=== PATIENT | female | born 1975 | race Caucasian/White ===

== ENCOUNTER 2019-03-12 10:53 | Outpatient (REF) | payer BC, SELFPAY | END 2019-03-12 11:13 | LOC: LBN 10:53 | PROVIDERS: PCP Emergency Medicine | DX: J02.9 Acute pharyngitis, unspecified (principal) | CPT/HCPCS: 87077; 87070 ==

== ENCOUNTER 2019-11-01 08:23 | Outpatient (CLI) | payer BC, SELFPAY ==
[2019-11-01 11:23] LABS: Calculated LDL 100 mg/dL; Cholesterol 161 mg/dL (<200); HDL Cholesterol 47 mg/dL (40-60); Triglyceride 74 mg/dL (<150)
[2019-11-02 10:39] LABS: Lyme Ab w Rflx to Lyme Confirm Negative (Negative)
== END 2019-11-01 08:43 ==
PROVIDERS: PCP Emergency Medicine; Visit Provider Nurse Practitioner
DX: Z13.220 Encounter for screening for lipoid disorders (principal); Z13.1 Encounter for screening for diabetes mellitus; Z11.8 Encounter for screening for other infectious and parasitic diseases; W57.XXXA Bitten or stung by nonvenomous insect and other nonvenomous arthropods, initial encounter; T14.8XXA Other injury of unspecified body region, initial encounter
CPT/HCPCS: 36415; 80061; 83036; 86618

== ENCOUNTER 2020-10-01 11:23 | Outpatient (CLI) | payer BC, SELFPAY ==
[2020-10-04 14:43] LABS: Patient Race White; SARS-CoV-2 RNA Undetected (Undetected); SARS-CoV-2 Specimen Source Nasal
== END 2020-10-01 11:43 ==
PROVIDERS: PCP Emergency Medicine; Visit Provider Emergency Medicine
DX: J02.9 Acute pharyngitis, unspecified (principal)
CPT/HCPCS: U0003

== ENCOUNTER 2021-12-15 15:49 | Emergency (ER) | payer BC, SELFPAY ==
[2021-12-15] VITALS (13 sets, daily range): BP systolic 112–137; BP diastolic 63–80; PULSE 60–82; RESP 12–21; TEMP 36.6; O2SAT 81–100
--- NOTE | 2021-12-15 15:45 | RT.EKG_ITS ---
APPROVED REPORT Exam: Resting ECG Reason for Exam: CHEST PAIN Patient Location: E HR:66 bpm ECG Measurements Heart Rate 66 AXIS AZ 157 P 71 QRSd 70 QRS 47 QT 376 T 41 QTc 395 Conclusion Sinus rhythm...normal P axis, V-rate 60- 99
--- NOTE | 2021-12-15 16:00 | DI.CT_ITS ---
Exam(s) CT CHEST PE CTA EXAM: CT CHEST PE CTA CLINICAL HISTORY: Chest Pain, Post Covid, R/O PE. TECHNIQUE: Imaging Protocol: CT angiography of the chest was performed using pulmonary embolus rolando col. Multi planar reconstructions were performed. CONTRAST MATERIAL: Intravenous: Omnipaque 350 Contrast volume: 100 cc COMPARISON: No exams were available for comparison FINDINGS: CHEST: PULMONARY ARTERIES: There are no intraluminal filling defects to suggest acute pulmonary emboli. LUNGS: There are no infiltrates nor evidence of pulmonary infarction.. There are no pleural effusions . MEDIASTINUM: There is no hilar nor mediastinal adenopathy. Visualized thyroid unremarkable. CARDIAC: Heart size is upper normal. There is no pericardial effusion.Caliber of the thoracic aorta is within normal limits. There is no significant shift of the interventricular septum. PARTIALLY VISUALIZED UPPERMOST ABDOMEN: No obvious findings OSSEOUS: No significant osseous lesions.. IMPRESSION: 1. No evidence of acute pulmonary emboli. No evidence of pulmonary infarction.No infiltrates in eith er lung field. No pleural effusions. 2. No intrathoracic adenopathy. 3. RADIATION DOSE DELIVERED: 434.49mGy.cm Total DLP DATA REPOSITORY: All CT scans at this facility are submitted to the National Radiology Data Registry (NRDR) Dose Index Registry (DIR) with the [employer] (ACR). RADIATION OPTIMIZATION: All CT scans at this facility use at least one of these dose optimization te chniques: automated exposure control; mA and/or kV adjustment per patient size (includes targeted exa ms where dose is matched to clinical indication); or iterative reconstruction.
[2021-12-15 16:18] LABS: Abs Immature Grans 0.01 10^3/uL (0.0-0.06); Absolute Basophil Count 0.06 10^3/uL (0.0-0.2); Absolute Eosinophil Count 0.15 10^3/uL (0.0-0.7); Absolute Lymphocyte Count 2.09 10^3/uL (1.2-3.4); Absolute Monocyte Count 0.61 10^3/uL (0.1-0.8); Absolute Neutrophil Count 4.37 10^3/uL (1.2-6.7); Basophils % 0.8; Eosinophils % 2.1; HCT 41.9 % (36.0-46.0); HGB 14.1 g/dL (11.2-15.7); Immature Grans % 0.1; Lymphocytes % 28.7; MCH 30.1 pg (27.0-33.0); MCHC 33.7 % (32.0-36.0); MCV 89.5 fL (80-95); MPV 10.8 fL (8.0-11.0); Monocytes % 8.4; Neutrophils % 59.9; Nucleated RBC 0 %; Platelet Count 201 10^3/uL (130-400); RBC 4.68 10^6/uL (3.93-5.22); RDW 12.2 % (11.7-14.6); WBC 7.29 10^3/uL (4.4-10.8)
--- NOTE | 2021-12-15 16:22 | W.ED.GENAD ---
Discharge Plan Disposition Patient Disposition: HOME Condition: Stable Discharge Details Clinical Impression: Anterior chest wall pain Primary Care Provider: Sterling Foster ED Provider: Rubina Shukla Home Meds and New Rx's Prescriptions: No Action hydroquinone 4 % cream 1 applic TOPICAL BID RF: 0 sertraline [Zoloft] 50 mg tablet 50 mg PO DAILY RF: 0 spironolactone [Aldactone] 50 mg tablet 50 mg PO BID RF: 0 Discharge Instructions Instructions: Chest Wall Pain (ED) Additional Instructions: At this time CT shows no evidence for blood clot in your lung nor is there any evidence for cardiac involvement. At this time I do feel that the musculoskeletal. This could be residual from the recent Covid infection. Please take Tylenol or Ibuprofen with food every 4-6 hours as needed for pain and swelling. Follow up with primary care provider in 3-5 days. Return to ED sooner if any worsening or concerns. Increase oral fluids. Referrals: Sterling Foster MD [Primary Care Provider] - 3 days Discharge Data Discharge Date/Time-TO BE ENTERED AT DEPARTURE: 12/15/21 17:55 Medical Decision Making 45-year-old female presents to the ER with chief complaint of midsternal chest pain, fatigue is been ongoing for the last 2 days. Patient reports that she had 2+ home Covid test however had a negative PCR test the end of November. She reports chest fullness. She was sent here by her PCP to rule out blood clot. She denies any recent long trips in a car plane, no leg swelling. She denies smoker. EKG was reviewed by Dr. Rincon ER attending, please see his official report, no old EKG available for review. CBC, CMP, CT chest rule out PE ordered. Serial troponins. CBC shows no leukocytosis, CMP also largely within normal limits, initial troponin within normal limits, CT chest results below. CTA Chest R/O PE: COMPARISON: No relevant prior studies available. FINDINGS: Pulmonary arteries: Contrast fills the pulmonary artery and its branch vessels satisfactorily. No intraluminal filling defect to suggest pulmonary embolism. Aorta: Unremarkable. No aortic aneurysm. No aortic dissection. Lungs: Unremarkable. No consolidation. No masses. Pleural spaces: Unremarkable. No pneumothorax. No pleural effusion. Heart: Unremarkable. No cardiomegaly. No pericardial effusion. Lymph nodes: Unremarkable. No enlarged lymph nodes. Bones/joints: Unremarkable. No acute fracture. Soft tissues: Unremarkable. IMPRESSION: 1. No pulmonary embolism. 2. No acute pulmonary parenchymal finding. Thank you for allowing us to participate in the care of your patient. Dictated and Authenticated by: Vinny Stephenson MD Discussed results with patient verbally understanding. Patient was given Maalox prior to discharge. Charge on home care, verbalized understanding. This text was generated using [employer] dictation system, please disregard any oddities of phrase or misspellings. HPI General Mode of arrival: ambulatory. Date/Time Provider Initiated Documentation: 12/15/21 15:50. Limitations to Documentation: no limitations. Information obtained by: patient, RN notes reviewed and old records reviewed. HPI Narrative: 45-year-old female presents to the ER with chief complaint of midsternal chest pain, fatigue is been ongoing for the last 2 days. Patient reports that she had 2+ home Covid test however had a negative PCR test the end of November. She reports chest fullness. She was sent here by her PCP to rule out blood clot. She denies any recent long trips in a car plane, no leg swelling. She denies smoker. Related Data Home Medications Medication Instructions Recorded Confirmed hydroquinone 1 applic TOPICAL BID 12/15/21 12/15/21 sertraline [Zoloft] 50 mg PO DAILY 12/15/21 12/15/21 spironolactone [Aldactone] 50 mg PO BID 12/15/21 12/15/21 Allergies Allergy/AdvReac Type Severity Reaction Status Date / Time tramadol Allergy Intermediate HIVES Verified 12/15/21 16:16 codeine Allergy Mild HIVES; GI Verified 12/15/21 16:16 UPSET milk AdvReac Unknown lactose Verified 12/15/21 16:16 intolerant General Stated Complaint: Chest Pain GENET: 3 Review of Systems All systems reviewed & are unremarkable except as noted in HPI and below PFSH All Active Problems (Updated 12/15/21 @ 17:58 by Samantha Conte RN) COVID-19 (Acute) December 2021 Anterior chest wall pain (Acute) Trigger finger (Acute) Immunity to hepatitis B virus demonstrated by serologic test (Acute) Post-nasal drainage (Acute) Snoring (Acute) Seasonal allergic rhinitis (Chronic) History of stillbirth (Acute 02/21/17) Grief with PTSD like symptoms H/O lumbar discectomy (Chronic 12/28/16) 2007 Dr Schumacher. 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 Appears stated age. Normal body habitus. Head: Normocephalic, no trauma. Eyes: Pupils PERRL, Red reflex noted, EOM's intact. Eyelids symmetrical without lesions, discharge, or swelling. ENT: Bilateral TM's WNL, External ear normal to inspection, no mastoid TTP, swelling, or erythema, Nasal turbinates WNL, no nasal discharge. Normal dentition, Posterior pharynx WNL, no exudate. Chest: RRR, Normal S1, S2, distal pulses intact. Resp: Lungs clear to auscultation bilaterally, no wheezes, rales, or rhonchi. Abdomen: Soft, non-distended, Normoactive bowel sounds all 4 quads. Musculoskeletal: Normal gait, 5/5 strength to all four extremities. Skin: No suspicious rashes or lesions. Capillary refill less than 2 sec. Neurologic: Cranial nerves II-XII intact. Alert and oriented x 3. Motor: No deficits noted. Sensory: Intact bilaterally all 4 extremities. Reflexes: DTR's intact bilaterally.. Hematologic/Lymphatic: No ecchymosis, no lymphadenopathy. Course Vital Signs Vital signs: Vital Signs Temperature 36.6 C 12/15/21 15:53 Pulse 72 12/15/21 15:53 Respiratory Rate 16 12/15/21 15:53 Blood Pressure 134/78 12/15/21 15:53 Pulse Oximetry 98 12/15/21 15:53 Temperature 36.6 C 12/15/21 15:53 Temperature Source Temporal Artery Scan 12/15/21 15:53 Pulse 72 12/15/21 15:53 Respiratory Rate 16 12/15/21 15:53 Blood Pressure 134/78 12/15/21 15:53 Blood Pressure Position Sitting 12/15/21 15:53 Pulse Oximetry 98 12/15/21 15:53 Oxygen Delivery Method Room Air 12/15/21 15:53 Oxygen Flow Rate 0 12/15/21 15:53 Lab/Test Results Lab/Test Results: Laboratory Tests Range/Units 12/15/21 16:10 WBC (4.4-10.8) 10^3/uL 7.29 RBC (3.93-5.22) 10^6/uL 4.68 Hgb (11.2-15.7) g/dL 14.1 Hct (36.0-46.0) % 41.9 MCV (80-95) fL 89.5 MCH (27.0-33.0) pg 30.1 MCHC (32.0-36.0) % 33.7 RDW (11.7-14.6) % 12.2 Plt Count (130-400) 10^3/uL 201 MPV (8.0-11.0) fL 10.8 Immature Gran % 0.1 Neutrophils % 59.9 Lymphocytes % 28.7 Monocytes % 8.4 Eosinophils % 2.1 Basophils % 0.8 Nucleated RBC % % 0 Absolute Neutrophils (1.2-6.7) 10^3/uL 4.37 Absolute Lymphocytes (1.2-3.4) 10^3/uL 2.09 Absolute Monocytes (0.1-0.8) 10^3/uL 0.61 Absolute Eosinophils (0.0-0.7) 10^3/uL 0.15 Absolute Basophils (0.0-0.2) 10^3/uL 0.06 POC- Test(urine) Negative
[2021-12-15 16:36] LABS: ALT 17 U/L (14-59); AST 5 U/L (15-37); Albumin 4.1 g/dL (3.4-5.0); Alkaline Phosphatase 50 U/L (46-116); Anion Gap 8.7 mmol/L (3-11); BUN 18 mg/dL (7-18); Bilirubin, Total 0.3 mg/dL (0.2-1.0); CO2 26.3 mmol/L (21.0-32.0); CREATININE 0.7 mg/dL (0.55-1.02); Calcium 8.9 mg/dL (8.5-10.1); Chloride 104 mmol/L (98-107); Glucose 94 mg/dL (74-106); Sodium 139 mmol/L (136-145); Total Protein 7.6 g/dL (6.4-8.2); Troponin I < 50 ng/L (<or=60)
[2021-12-15] MEDS: Omnipaque 350 MG/ML 100 ML BTL IV (17:23)
--- NOTE | 2021-12-15 17:27 | DI.VRAD_ITS ---
PROCEDURE INFORMATION: Exam: CTA Chest With Contrast Exam date and time: 12/15/2021 4:06 PM Age: 45 years old Clinical indication: Other: Chest pain, post covid, R/O pe TECHNIQUE: Imaging protocol: Computed tomographic angiography of the chest with contrast. 3D rendering (Not supervised by radiologist): MIP and/or 3D reconstructed images were created by the technologist. Radiation optimization: All CT scans at this facility use at least one of these dose optimization techniques: automated exposure control; mA and/or kV adjustment per patient size (includes targeted exams where dose is matched to clinical indication); or iterative reconstruction. COMPARISON: No relevant prior studies available. FINDINGS: Pulmonary arteries: Contrast fills the pulmonary artery and its branch vessels satisfactorily. No intraluminal filling defect to suggest pulmonary embolism. Aorta: Unremarkable. No aortic aneurysm. No aortic dissection. Lungs: Unremarkable. No consolidation. No masses. Pleural spaces: Unremarkable. No pneumothorax. No pleural effusion. Heart: Unremarkable. No cardiomegaly. No pericardial effusion. Lymph nodes: Unremarkable. No enlarged lymph nodes. Bones/joints: Unremarkable. No acute fracture. Soft tissues: Unremarkable. IMPRESSION: 1. No pulmonary embolism. 2. No acute pulmonary parenchymal finding. Dictated and Authenticated by: Vinny Stephenson MD. Ordering:WILLIAM Cespedes MD
[2021-12-15] MEDS: Mylanta Suspension 30 ML CUP PO (17:47)
== END 2021-12-15 17:55 | disposition home or self-care (01) ==
PROVIDERS: Emergency Provider Registered Nurse Emergency; PCP Family Medicine
DX: R07.89 Other chest pain (principal); R53.1 Weakness; Z86.16 Personal history of COVID-19
CPT/HCPCS: 36415; 71275; 80053; 81025; 93005; 99285; 83735; 84484; 85025; 93010; 99283; J3490

== ENCOUNTER 2022-09-13 18:27 | Outpatient (REF) | payer BC, SELFPAY | END 2022-09-13 18:28 | disposition home or self-care (01) | LOC: LBN 18:27 | PROVIDERS: PCP Nurse Practitioner Family; Visit Provider Nurse Practitioner Family | DX: Z20.822 Contact with and (suspected) exposure to COVID-19 (principal); J02.9 Acute pharyngitis, unspecified | CPT/HCPCS: 87070 ==

== ENCOUNTER 2023-07-25 13:36 | Outpatient (CLI) | payer BC, SELFPAY ==
--- NOTE | 2023-07-25 13:15 | DI.RAD_ITS ---
Exam(s) XR SHOULDER LT COMPLETE 2+V EXAM: XR SHOULDER LT COMPLETE 2+V CLINICAL HISTORY: L shoulder injury. TECHNIQUE: 2D digital imaging was performed of the left shoulder. Three images were obtained. AP, Y-view and axillary views were obtained. COMPARISON: CT CT CHEST PE CTA from 12/15/2021 FINDINGS: BONES: No acute fracture is present. No bony destructive lesion is seen. JOINTS: No dislocation present. The joint spaces are well maintained. SOFT TISSUE: Normal. IMPRESSION: Unremarkable radiographs of the left shoulder. DATA REPOSITORY: RADIATION DOSE DELIVERED:
--- NOTE | 2023-07-25 13:15 | DI.RAD_ITS ---
Exam(s) XR THUMB RT EXAM: XR THUMB RT CLINICAL HISTORY: R thumb injury. TECHNIQUE: 2D digital imaging was performed of the right finger. Three views were obtained. PA/AP, oblique, and lateral views were obtained. COMPARISON: CR RIGHT WRIST COMPLETE from 12/10/2011 FINDINGS: BONES: No acute fracture is present. No bony destructive lesion is seen. JOINTS: No dislocation present. SOFT TISSUE: Normal. IMPRESSION: No evidence of acute fracture, dislocation, or subluxation. DATA REPOSITORY: RADIATION DOSE DELIVERED:
== END 2023-07-25 13:37 | disposition home or self-care (01) ==
LOC: DIORS 13:36
PROVIDERS: PCP Nurse Practitioner Family; Visit Provider Physician Assistant
DX: S69.91XA Unspecified injury of right wrist, hand and finger(s), initial encounter; S49.90XA Unspecified injury of shoulder and upper arm, unspecified arm, initial encounter; X58.XXXA Exposure to other specified factors, initial encounter
CPT/HCPCS: 73030; 73140

== ENCOUNTER 2023-08-29 06:56 | Day surgery (SDC) | payer BC, SELFPAY ==
--- NOTE | 2023-08-28 19:21 | W.PM.DSUDISC ---
Date of service: 08/29/23 Time of Service: 08:45 Discharge Plan Disposition Patient Disposition: Home Condition: Good Discharge Details Reason For Visit: Screening colonoscopy Attending Provider: John Ravi Primary Care Provider: Prosper Sepulveda Home Meds and New Rx's Prescriptions: Continued vitamin B complex [B Complex-Vitamin B12] Tablet 1 tab PO DAILY cholecalciferol (vitamin D3) 25 mcg (1,000 unit) capsule 25 mcg PO DAILY Women's Daily Formula 27-0.4 mg tablet 1 tab PO DAILY Galzin 50 mg (zinc) capsule 50 mg PO DAILY ascorbic acid (vitamin C) 500 mg capsule 500 mg PO DAILY Adult 50 Plus Probiotic 4 billion cell capsule 4,000 cell PO DAILY spironolactone 100 mg tablet 100 mg PO DAILY omeprazole 20 mg capsule,delayed release(DR/EC) 20 mg PO BID Qty: 90 3RF hydroquinone 4 % cream 1 applic TOPICAL BID Patient Comments: APPLY TO FACE TWO TIMES A DAY sertraline [Zoloft] 50 mg tablet 50 mg PO DAILY Patient Comments: TAKE ONE TABLET BY MOUTH EVERY DAY Discontinued polyethylene glycol 3350 17 gram/dose powder 238 g PO ONCE Qty: 238 0RF Rx Instructions: take per colonoscopy instructions bisacodyl [Dulcolax (bisacodyl)] 5 mg tablet,delayed release (DR/EC) 5 mg PO ONCE Qty: 4 0RF Rx Instructions: take per colonoscopy instructions Discharge Instructions Additional Instructions: Fall on, we were able to complete your colonoscopy today without any problems. The prep was excellent. I did not see any signs of polyps, tumors, or anything worrisome. You should consider another colonoscopy in 10 years. 1. If tolerated, consume a soft, low fiber diet for 1-2 days. 2[address] Do not drive, drink alcohol, operate machinery, make critical decisions, or do activities that require coordination or balance for 24 hours. 3. Because air was put into your colon during the procedure, expelling air from your rectum (passing gas or farting) is normal. 4. You may not have a bowel movement for 1-3 days because of the colonoscopy prep. This is normal. 5. Go directly to the emergency room if you notice any of the following: Develop chills (warm to touch), or if you have a thermometer and your temperature is above 101 Difficulty breathing or difficultly swallowing Persistent vomiting Severe abdominal pain, other than gas cramps Severe chest pain Black, tarry stools Any bleeding ? exceeding one tablespoon 6. Call your physician if the site where your intravenous was started becomes red, swollen, painful, and warm to touch. 7. Your physician has reviewed your pre-procedure medications. Please continue to take those medications as previously ordered. You will be given specific information/education regarding any changes to your medications before leaving. Activity:: Activity as Tolerated Diet:: As Tolerated Discharge Orders Discharge Orders: Discharge Order (Routine); Ordered 08/28/23 Ordered By: John Ravi DS: Diagnosis Discharge Diagnosis (1) Screen for colon cancer: Status: Acute Asessment and Plan: Negative screening colonoscopy
--- NOTE | 2023-08-28 19:23 | COLE_ITS ---
Date of service: 08/29/23 Time of Service: 08:46 Colonoscopy Report Date of procedure: 08/29/23 Pre-op diagnosis general: Screening colonoscopy Post-op diagnosis procedure note: other (Negative screening colonoscopy) Procedure: Colonoscopy Surgeon: John Ravi Anesthesia Type: General:No Airway Estimated blood loss (mL): 0 Pathology: none sent Complications: None Disposition: same day Indications: Florence is a 47 year old woman who needs her first screening colonoscopy Prep: Miralax/Dulcolax Procedure Start Time: 08:20 Procedure End Time: 08:31 Retraction Time: 7 Findings: Negative screening colonoscopy Procedure Description: After the induction of monitored anesthetic care, and with the patient in left lateral decubitus position, I began by performing an external anorectal exam.? Perineum and skin were normal, as was the anal verge.? There was no evidence of external hemorrhoids.? Next, I performed a digital rectal exam.? I did not appreciate any abnormal findings.? Next, I advanced a colonoscope into the rectal vault.? I performed retroflexion.? This was normal.? Using insufflation, I then advanced the colonoscope beyond the rectal folds and into the sigmoid colon before advancing towards the cecum.? The scope was noted to be in the cecum by identification of the ileocecal valve and appendiceal orifice.? I then began withdrawing the colonoscope using repeated irrigation as necessary for full evaluation of the colonic mucosa. ?Once the scope was withdrawn to the level of the rectum, great care was taken to examine portions of the rectal folds.? Using the [place] prep score, the quality of the prep was 3, 3, 3 from right to left. finally, the scope was withdrawn and the patient was brought to the same-day surgery recovery unit as the anesthetic wore off. ?The findings and instructions were shared with the patient prior to discharge.
[2023-08-29 07:24] VITALS: BP 115/81; PULSE 96; RESP 18; TEMP 36; O2SAT 97
[2023-08-29] MEDS: Lactated Ringers 1,000 ML 80 ML IV (07:40)
--- NOTE | 2023-08-29 07:40 | ANES.PREOP_ITS ---
General Info Date of Service Date Performed: 08/29/23 Height: 5 ft 8.5 in Weight: 75.1 kg Body Mass Index (BMI): 24.7 Surgical Procedure: Operation Date: 08/29/23 09:05 Proposed Procedure Side Surgeon p Colonoscopy, possible polypectomy John Ravi MD Meds Allergies and Home Medications Allergies Allergy/AdvReac Type Severity Reaction Status Date / Time lactose Allergy Intermediate diarrhea/bl Verified 08/29/23 07:17 oating tramadol Allergy Intermediate HIVES Verified 08/29/23 07:17 codeine Allergy Mild HIVES; GI Verified 08/29/23 07:17 UPSET Home Medication Medication Instructions Recorded hydroquinone 4 % topical cream 1 applic topical BID 12/15/21 sertraline 50 mg tablet (Zoloft) 50 mg PO DAILY 12/15/21 ascorbic acid (vitamin C) 500 mg 500 mg PO DAILY 10/14/22 capsule cholecalciferol (vitamin D3) 25 25 mcg PO DAILY 10/14/22 mcg (1,000 unit) capsule lactobacillus combination no.9 4 4,000 cell PO DAILY 10/14/22 billion cell capsule (Adult 50 Plus Probiotic) [id number]-minerals 27 1 tab PO DAILY 10/14/22 mg-0.4 mg tablet (Women's Daily Formula) vitamin B complex (B 1 tab PO DAILY 10/14/22 Complex-Vitamin B12 tablet) zinc acetate 50 mg (zinc) capsule 50 mg PO DAILY 10/14/22 (Galzin) omeprazole 20 mg capsule,delayed 20 mg PO BID #90 caps 08/15/23 release spironolactone 100 mg tablet 100 mg PO DAILY 08/15/23 Current Visit Medications: Current Medications Generic Name Dose Route Start Last Admin Trade Name Freq PRN Reason Stop Dose Admin Hyoscyamine Sulfate 0.125 mg 08/29/23 06:00 Hyoscyamine 0.125 Mg Sl/Oral/Chew SL 08/29/23 18:00 PREOP NILSA Hyoscyamine Sulfate 0.125 mg 08/28/23 19:24 Hyoscyamine 0.125 Mg Sl/Oral/Chew SL 09/27/23 19:23 DIRECTED PRN Ringer's Solution 1,000 mls @ 80 mls/hr 08/29/23 06:00 IV 09/25/23 23:59 INFUSION NILSA IV Miscellaneous Supplies 1 each 08/29/23 06:00 Iv Access IV 09/25/23 23:59 DIRECTED [facility] Ondansetron HCl 4 mg 08/28/23 19:24 Ondansetron 4 Mg/2 Ml Vial IVP 09/27/23 19:23 Q4H PRN PRN Nausea / Vomiting Sodium Chloride 0 ml 08/29/23 06:00 Normal Saline Flush 10 Ml Syr IV 09/25/23 23:59 PRN PRN Sodium Chloride 0 ml 08/29/23 06:00 Normal Saline 10 Ml Vial IJ 09/25/23 23:59 DIRECTED PRN Sterile Water 0 ml 08/29/23 06:00 Water,Injection,Sterile 10 Ml Vial IJ 09/25/23 23:59 DIRECTED PRN PFSH Active Problems Active Problems: Problem Status Onset Code Screen for colon cancer Z12.11 Chronic GERD K21.9 Injury of volar plate of interphalangeal joint of thumb S69.90XA Tendinitis of long head of biceps brachii of left shoulder M75.22 Low back pain M54.50 Heart burn R12 Non-restorative sleep G47.8 Snoring R06.83 Obstructive sleep apnea G47.33 COVID-19 U07.1 Trigger finger M65.30 Seasonal allergic rhinitis J30.2 History of stillbirth 12/28/16 Z87.59 Chronic left-sided low back pain with left-sided sciatica 12/28/16 M54.42, G89.29 Medical History Medical History (Updated 08/29/23 @ 07:20 by Angely Newton) Uterine fibroid Surgical History Surgical History (Updated 08/29/23 @ 07:20 by Angely Newton) [place] teeth extracted History of back surgery 2007, lumbar-discectomy Tobacco Smoking/Tobacco Use Status: Never Passive smoking exposure: Yes Second hand exposure: Yes Alcohol Alcohol Intake: current Alcohol intake frequency: a few times a week Alcohol type: wine and hard liquor Substance Use Substance use: Never Substance use type: does not use Details: alcohol: t-6, one glass Vital Signs and Lab Results Vital Signs Most Recent Vital Signs in EMR: Most Recent Vital Signs Temp Pulse Resp BP Pulse Ox 36.0 C L 96 H 18 115/81 97 08/29/23 07:24 08/29/23 07:24 08/29/23 07:24 08/29/23 07:24 08/29/23 07:24 Lab Results Blood Type / Crossmatch: No Data to Display Complete Blood Count: No Data to Display Complete Metabolic Panel: No Data to Display Liver Function Panel: No Data to Display Coagulation Panel: No Data to Display Cardiac Panel: No Data to Display Arterial Blood Gas: No Data to Display Venous Blood Gas: No Data to Display Pancreas Panel: No Data to Display Thyroid Panel: No Data to Display Infectious Disease: No Data to Display Blood Cultures: No Data to Display Toxicology Panel: No Data to Display Panel: No Data to Display Imaging and Studies Imaging and Studies Study information below may be from another EMR and interpreted by another provider. Please see original notes in EMR for more complete details. EKG Summary: Conclusion Sinus rhythm...normal P axis, V-rate 60- 99 12/15/21 Echocardiogram Summary: STUDY CONCLUSIONS* Summary: 1. Left ventricle: The cavity size was normal. Wall thickness was normal. Systolic function was normal. The estimated ejection fraction was 60-65%. Wall motion was normal; there were no regional wall motion abnormalities. 2. 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 Mild, late systolicprolapse, involving the anterior leaflet. Mild regurgitation directed posteriorly. 3. Left atrium: The atrium was mildly dilated. 4. Right ventricle: The cavity size was normal. Wall thickness was normal. Systolic function was normal. 12/05/15 Anesthesia Assessment and Plan Anesthesia History Personal History: No History of Anesthesia Complications Family History: No Family History of Anesthesia Complications Exercise Tolerance Exercise Tolerance: Metabolic Equivalents>4 Pertinent Negatives Pertinent Negatives: No Symptoms of GERD, No Major Cardiovascular Symptoms or Complaints and No Major Pulmonary Symptoms or Complaints Cardiac & Pulmonary Exam Cardiac Exam: Normal S1/S2 Heart Sounds Pulmonary Exam: Clear Bilateral Breath Sounds Implantable Cardiac Device Does patient have a Pacemaker or an ICD?: No Airway Exam Known Difficult Airway: No Mallampati Class: 1 Mouth Opening: Normal (> 3cm) Thyromental Distance: Greater than 3 cm Neck Range of Motion: Full ROM Neck Circumference: Normal Teeth Condition: Normal Dentition ASA Classification ASA Score: ASA 2 Emergency Case?: No NPO Status NPO Status: NPO Clears >2 hours, Solids >8 hours Status Status: Negative HCG Anesthesia Plan Resuscitation Status: Full Code Anesthesia Technique: General Anesthesia Airway Planned: Natural Airway Monitors Used: Standard Monitors
[2023-08-29] MEDS: Hyoscyamine 0.125 MG SL/ORAL/CHEW SL (07:55)
[2023-08-29 08:13] VITALS: BMI 24.7
[2023-08-29 08:38] VITALS: BP 102/75; PULSE 74; RESP 16; TEMP 36.2; O2SAT 98
[2023-08-29 09:00] VITALS: BP 120/88; PULSE 70; RESP 18; TEMP 36.6; O2SAT 99
[2023-08-29 09:04] VITALS: BP 111/73; PULSE 63; RESP 18; TEMP 36.4; O2SAT 98
--- NOTE | 2023-08-29 09:04 | W.ANESPOSTOP ---
Postoperative Evaluation Date, Time and Location Date Performed: 08/29/23 Time Performed: 08:48 Patient Location: Day Surgery Unit Vital Signs Most Recent Imported Vital Signs: Most Recent Vital Signs Temp Pulse Resp BP Pulse Ox 36.2 C L 74 16 102/75 98 08/29/23 08:38 08/29/23 08:38 08/29/23 08:38 08/29/23 08:38 08/29/23 08:38 Pain Score Most Recent Pain Score: Most Recent Pain Score Pain Level 0 08/29/23 08:38 Assessment Mental Status: Awake (Alert & Oriented to Patient Baseline) Airway and Respiratory Function: Patent airway with normal (patient baseline) respiratory exam Cardiovascular Function: Hemodynamically Stable Hydration Status: Adequately Hydrated Nausea & Vomiting: No Nausea or Vomiting Pain: Pt. Denies Any Pain Peripheral Nerve Block: Patient did not receive a nerve block
== END 2023-08-29 09:25 | disposition home or self-care (01) ==
LOC: SUR 06:57
PROVIDERS: PCP Nurse Practitioner Family; Visit Provider Surgery
PROC: 0DJD8ZZ Inspection of Lower Intestinal Tract, Via Natural or Artificial Opening Endoscopic (ICD-10-PCS; CPT 45378; principal; 2023-08-29 09:00)
DX: Z12.11 Encounter for screening for malignant neoplasm of colon (principal); K21.9 Gastro-esophageal reflux disease without esophagitis
CPT/HCPCS: 45378; J2001; J2405; J3490

== ENCOUNTER 2024-03-23 07:09 | Emergency (ER) | payer BC, SELFPAY ==
[2024-03-23 07:14] VITALS: BP 140/86; PULSE 81; RESP 12; TEMP 36.9; O2SAT 99
--- NOTE | 2024-03-23 07:30 | DI.MRI_ITS ---
Exam(s) MR LUMBAR SPINE WO EXAM: MR LUMBAR SPINE WO CLINICAL HISTORY: low back pain, paresthesia LLE, incontinent urine. TECHNIQUE: Multiplanar multisequence MRI of the Lumbar spine was performed. COMPARISON: MR MRI - LUMBAR SPINE W/WO CONT from 01/25/2017 FINDINGS: Bones: The last intervertebral disc space is designated the L5/S1 level for the numbering purpose of this examination. The vertebral body heights are well maintained. Alignment is satisfactory. Degene rative endplate signal changes are seen at L4-5 and L5-S1. Cord: The conus tip ends at the T12 level. It is of normal size and signal intensity. T12-L1: No disc herniations or bulges are present. No central spinal canal or neural foraminal stenos is. L1-2: No disc herniations or bulges are present. No central spinal canal or neural foraminal stenosis . L2-3: No disc herniations or bulges are present. No central spinal canal or neural foraminal stenosis . L3-4: No disc herniations or bulges are present. No central spinal canal or neural foraminal stenosis . L4-5: There is a left paracentral disc herniation with extrusion posterior to the L5 vertebral body. There is left lateral recess stenosis with compression of the left L5 nerve root. There are degener ative changes of the facets and hypertrophy of the ligamentum flavum. These all contribute to cause [id number] central spinal canal stenosis. No significant neural foraminal stenosis is present. L5-S1: There is a mild diffuse disc bulge. No central spinal canal or neural foraminal stenosis. Soft tissues: The visualized SI joints and sacrum are well maintained. The paraspinal soft tissues ar e unremarkable. IMPRESSION: 1. Left paracentral disc herniation at L4-L5 causing left lateral recess stenosis and compression of the left L5 nerve root. 2. Degenerative changes seen in the lumbar spine resulting in central spinal canal stenosis at L4-L5. DATA REPOSITORY:
[2024-03-23] MEDS: diazePAM 5 MG TAB PO (07:52)
[2024-03-23] MEDS: ACETAMINOPHEN 1,000 MG/100 ML BTL 400 MG IVPB (07:52)
[2024-03-23] MEDS: Normal Saline 10 ML VIAL IJ (08:00)
[2024-03-23] MEDS: Lidocaine 5% Patch 1 PATCH TP (08:00)
[2024-03-23 08:06] LABS: Abs Immature Grans 0.02 10^3/uL (0.0-0.06); Absolute Basophil Count 0.06 10^3/uL (0.0-0.2); Absolute Eosinophil Count 0.11 10^3/uL (0.0-0.7); Absolute Lymphocyte Count 1.37 10^3/uL (1.2-3.4); Absolute Monocyte Count 0.41 10^3/uL (0.1-0.8); Absolute Neutrophil Count 5.09 10^3/uL (1.2-6.7); Basophils % 0.8 %; Eosinophils % 1.6 %; HCT 42.9 % (36.0-46.0); HGB 14.8 g/dL (11.2-15.7); Immature Grans % 0.3 %; Lymphocytes % 19.4 %; MCH 30.6 pg (27.0-33.0); MCHC 34.5 % (32.0-36.0); MCV 89 fL (80-95); MPV 11.1 fL (8.0-11.0); Monocytes % 5.8 %; Neutrophils % 72.1 %; Platelet Count 211 10^3/uL (130-400); RBC 4.83 10^6/uL (3.93-5.22); RDW 12.1 % (11.7-14.6); RDW-SD 39.5 fL; WBC 7.06 10^3/uL (4.4-10.8)
--- NOTE | 2024-03-23 08:59 | W.ED.GENAD ---
Discharge Plan Disposition Patient Disposition: Home Condition: Stable Discharge Details Clinical Impression: Low back pain, Lumbar disc herniation, Central stenosis of spinal canal Primary Care Provider: Prosper Sepulveda ED Provider: Lester Rincon Home Meds and New Rx's Prescriptions: New methylprednisolone [Medrol (Ethan)] 4 mg tablets,dose pack See Rx Instructions .ROUTE .COMPLEX Qty: 21 0RF Rx Instructions: for 6 days gabapentin 300 mg capsule See Rx Instructions .ROUTE .COMPLEX Qty: 90 0RF Rx Instructions: 300mg tablet Day 1: Take 300 mg p.o. at bedtime Day 2: Take 300 mg p.o. twice daily Day 3 - ongoing: Take 300 mg PO 3 times daily lidocaine 5 % adhesive patch,medicated 1 patch topical DAILY Qty: 30 0RF Rx Instructions: leave on most painful area for up to 12 hrs Continued vitamin B complex [B Complex-Vitamin B12] Tablet 1 tab PO DAILY cholecalciferol (vitamin D3) 25 mcg (1,000 unit) capsule 25 mcg PO DAILY Women's Daily Formula 27-0.4 mg tablet 1 tab PO DAILY Galzin 50 mg (zinc) capsule 50 mg PO DAILY ascorbic acid (vitamin C) 500 mg capsule 500 mg PO DAILY Adult 50 Plus Probiotic 4 billion cell capsule 4,000 cell PO DAILY omeprazole 20 mg capsule,delayed release(DR/EC) 20 mg PO BID Qty: 90 3RF clindamycin phosphate 1 % solution 1 applic topical BID Patient Comments: APPLY TO FACE ON A ONE TO TWO TIMES DAILY BASIS scopolamine base 1 mg over 3 days patch 3 day 1 patch transdermal Q3D PRN (Reason: nausea and vomiting) Qty: 10 0RF hydroquinone 4 % cream 1 applic TOPICAL BID Patient Comments: APPLY TO FACE TWO TIMES A DAY sertraline [Zoloft] 50 mg tablet 50 mg PO DAILY Patient Comments: TAKE ONE TABLET BY MOUTH EVERY DAY Discharge Instructions Instructions: Lumbar Disc Herniation (ED) Additional Instructions: Please take ibuprofen over the counter. Take 600mg by mouth every 6 hours as needed for pain. Please take acetaminophen (tylenol) - 650mg every 6 hours by mouth as needed for pain. Please contact your primary care physician to arrange follow-up. Please follow-up with [facility] neurosurgery. Their clinic number is . You may also see your prior neurosurgeon. The neurosurgeon recommended 6-week follow-up. Please follow-up with pain clinic. Return to the ER immediately for any worsening or new concerning symptoms. Referrals: [facility] [Provider Group] Prosper Sepulveda, [employer] [Primary Care Provider] - Discharge Data Discharge Date/Time-TO BE ENTERED AT DEPARTURE: 03/23/24 13:34 HPI General Mode of arrival: ambulatory. Date/Time Provider Initiated Documentation: 03/23/24 07:26. Limitations to Documentation: no limitations. Information obtained by: patient. HPI Narrative: 48-year-old female with history of lumbar herniated disc, presents with chief complaint of left leg numbness. Patient notes history of L5-S1 herniated disc and status post discectomy in 2006. She had significant improvement at that time for years. She return if symptoms around 2016 and has undergone multiple cortisone injections. She states she has intermittent flares of pain. She states that over the past week she has had a severe exacerbation. Symptoms currently worse than they have ever been. She states she has had tingling down her left leg over the past week. Left leg is now numb today. No associated weakness she does have associated achiness in her hips. She states that 3 days ago she experienced incontinence of urine. She has never experienced this before. She has been able to control bowel movements. No recent trauma. Related Data Home Medications Medication Instructions Recorded Confirmed hydroquinone 4 % topical cream 1 applic topical BID 12/15/21 03/23/24 sertraline 50 mg tablet (Zoloft) 50 mg PO DAILY 12/15/21 03/23/24 ascorbic acid (vitamin C) 500 mg 500 mg PO DAILY 10/14/22 03/23/24 capsule cholecalciferol (vitamin D3) 25 25 mcg PO DAILY 10/14/22 03/23/24 mcg (1,000 unit) capsule lactobacillus combination no.9 4 4,000 cell PO DAILY 10/14/22 03/23/24 billion cell capsule (Adult 50 Plus Probiotic) [id number]-minerals 27 1 tab PO DAILY 10/14/22 03/23/24 mg-0.4 mg tablet (Women's Daily Formula) vitamin B complex (B 1 tab PO DAILY 10/14/22 03/23/24 Complex-Vitamin B12 tablet) zinc acetate 50 mg (zinc) capsule 50 mg PO DAILY 10/14/22 03/23/24 (Galzin) omeprazole 20 mg capsule,delayed 20 mg PO BID #90 caps 08/15/23 03/23/24 release clindamycin phosphate 1 % topical 1 applic topical BID 09/19/23 03/23/24 solution scopolamine base 1 mg over 3 days 1 patch transdermal Q3D PRN nausea 02/22/24 03/23/24 transdermal patch and vomiting #10 ea gabapentin 300 mg capsule See Rx Instructions .Route 03/23/24 .COMPLEX #90 caps lidocaine 5 % topical patch 1 patch topical DAILY #30 ea 03/23/24 methylprednisolone 4 mg tablets in See Rx Instructions PO .COMPLEX 03/23/24 a dose pack (Medrol (Ethan)) #21 dose pk Previous Rx's Medication Instructions Recorded omeprazole 20 mg capsule,delayed 20 mg PO BID #90 caps 08/15/23 release scopolamine base 1 mg over 3 days 1 patch transdermal Q3D PRN nausea 02/22/24 transdermal patch and vomiting #10 ea gabapentin 300 mg capsule See Rx Instructions .Route 03/23/24 .COMPLEX #90 caps lidocaine 5 % topical patch 1 patch topical DAILY #30 ea 03/23/24 methylprednisolone 4 mg tablets in See Rx Instructions PO .COMPLEX 03/23/24 a dose pack (Medrol (Ethan)) #21 dose pk Allergies Allergy/AdvReac Type Severity Reaction Status Date / Time lactose Allergy Intermediate diarrhea/bl Verified 09/19/23 14:50 oating tramadol Allergy Intermediate HIVES Verified 09/19/23 14:50 codeine Allergy Mild HIVES; GI Verified 09/19/23 14:50 UPSET General Stated Complaint: Nk/Back Pain GENET: 4 Review of Systems All systems reviewed & are unremarkable except as noted in HPI and below Constitutional Constitutional: Denies fever(s) Neurologic Neurologic: Reports as per HPI Exam Const General: cooperative HENPA Head: normocephalic and atraumatic Mouth: moist mucous membranes Eyes Conjunctivae: normal conjunctivae Sclera: normal sclerae Neck Neck: trachea midline and supple Resp Auscultation: clear to auscultation bilaterally, no rales, no rhonchi and no wheezes Cardio Rate: regular rate and not tachycardic Rhythm: regular rhythm GI Palpation: soft, not firm and no guarding Back/Spine/Pelvis Back: No erythema, No warmth and No ecchymosis Thoracic/Lumbar Spine: No paraspinal tenderness, No thoracic spinal tenderness and No lumbar spinal tenderness Other: Patient standing due to discomfort with seated position Skin General skin exam: no rashes or lesions noted Neuro General: patient alert, patient awake, patient oriented x3 and tone normal Motor: strength 5/5 throughout Other: No saddle anesthesia, sensation intact bilateral lower extremities but feels stiff and numb in her left lower extremity extending distally to her foot Extrem General: no edema Psych Appearance: grossly normal Mental Status: mental status grossly normal Course Vital Signs Vital signs: Vital Signs Temperature 36.9 C 03/23/24 07:14 Pulse 81 03/23/24 07:14 Respiratory Rate 12 03/23/24 07:14 Blood Pressure 140/86 03/23/24 07:14 Pulse Oximetry 99 03/23/24 07:14 Temperature 36.9 C 03/23/24 07:14 Temperature Source Oral 03/23/24 07:14 Pulse 81 03/23/24 07:14 Respiratory Rate 12 03/23/24 07:14 Respiratory Effort Normal, Non-Labored 03/23/24 07:21 Blood Pressure 140/86 03/23/24 07:14 Blood Pressure Position Standing 03/23/24 07:14 Pulse Oximetry 99 03/23/24 07:14 Oxygen Delivery Method Room Air 03/23/24 07:14 Oxygen Flow Rate 0 03/23/24 07:14 Pain Level 10 03/23/24 07:26 Lab/Test Results Lab/Test Results: Laboratory Tests Range/Units 03/23/24 07:55 WBC (4.4-10.8) 10^3/uL 7.06 RBC (3.93-5.22) 10^6/uL 4.83 Hgb (11.2-15.7) g/dL 14.8 Hct (36.0-46.0) % 42.9 MCV (80-95) fL 89 MCH (27.0-33.0) pg 30.6 MCHC (32.0-36.0) % 34.5 RDW (11.7-14.6) % 12.1 Plt Count (130-400) 10^3/uL 211 MPV (8.0-11.0) fL 11.1 H Immature Gran % % 0.3 Neutrophils % % 72.1 Lymphocytes % % 19.4 Monocytes % % 5.8 Eosinophils % % 1.6 Basophils % % 0.8 Nucleated RBC % (0.0-0.3) % 0.0 Absolute Neutrophils (1.2-6.7) 10^3/uL 5.09 Absolute Lymphocytes (1.2-3.4) 10^3/uL 1.37 Absolute Monocytes (0.1-0.8) 10^3/uL 0.41 Absolute Eosinophils (0.0-0.7) 10^3/uL 0.11 Absolute Basophils (0.0-0.2) 10^3/uL 0.06 Sodium Cancelled Potassium Cancelled Chloride Cancelled Carbon Dioxide Cancelled Anion Gap Cancelled BUN Cancelled Creatinine Cancelled Est GFR (CKD-EPI 2020) Cancelled Glucose Cancelled Calcium Cancelled Magnesium Cancelled Total Bilirubin Cancelled AST Cancelled ALT Cancelled Alkaline Phosphatase Cancelled Total Protein Cancelled Albumin Cancelled Medical Decision Making 905??48-year-old female with history of L5-S1 herniated disc status post discectomy 2006, intermittent low back pain times years, here with significant exacerbation of back pain over the past 1 week with radiation into bilateral legs but worse on the left, worse with certain positions including seated position, paresthesia in her left lower extremity that is severe, incontinence of urine x 1 earlier this week. Sensation intact bilateral lower extremities as is motor but I am concerned with incontinence and paresthesia. Consider cauda equina syndrome. Plan to obtain MRI of the lumbar spine. Lidocaine patch, acetaminophen IV, and Valium administered for pain. 1008 --MRI of the lumbar spine interpreted by radiology:1. Left paracentral disc herniation at L4-L5 causing left lateral recess stenosis and compression of the left L5 nerve root. 2. Degenerative changes seen in the lumbar spine resulting in central spinal canal stenosis at L4-L5. 1127 --spoke with neurosurgeon at [facility], discussed ED presentation course, MRI was sent for review. He recommends postvoid residual and will be calling back. 1305 --patient has no postvoid residual. I spoke with Dr. Erwin, neurosurgeon at [facility], he recommends conservative management including gabapentin, Medrol dose pack, and 6-week follow-up with neurosurgical clinic. Results and discharge plan discussed with the patient. Lab Data Lab results reviewed: Yes I reviewed the patient's lab results. Labs: Laboratory Tests Range/Units 03/23/24 03/23/24 03/23/24 07:55 08:52 11:40 WBC (4.4-10.8) 10^3/uL 7.06 RBC (3.93-5.22) 10^6/uL 4.83 Hgb (11.2-15.7) g/dL 14.8 Hct (36.0-46.0) % 42.9 MCV (80-95) fL 89 MCH (27.0-33.0) pg 30.6 MCHC (32.0-36.0) % 34.5 RDW (11.7-14.6) % 12.1 Plt Count (130-400) 10^3/uL 211 MPV (8.0-11.0) fL 11.1 H Immature Gran % % 0.3 Neutrophils % % 72.1 Lymphocytes % % 19.4 Monocytes % % 5.8 Eosinophils % % 1.6 Basophils % % 0.8 Nucleated RBC % (0.0-0.3) % 0.0 Absolute Neutrophils (1.2-6.7) 10^3/uL 5.09 Absolute Lymphocytes (1.2-3.4) 10^3/uL 1.37 Absolute Monocytes (0.1-0.8) 10^3/uL 0.41 Absolute Eosinophils (0.0-0.7) 10^3/uL 0.11 Absolute Basophils (0.0-0.2) 10^3/uL 0.06 Sodium Cancelled 141 Potassium Cancelled 4.1 Chloride Cancelled 106 Carbon Dioxide Cancelled 27.9 Anion Gap Cancelled 7.1 BUN Cancelled 18 Creatinine Cancelled 0.6 Est GFR (CKD-EPI 2020) Cancelled 111.34 Glucose Cancelled 97 Calcium Cancelled 8.5 Magnesium Cancelled 1.9 Total Bilirubin Cancelled 0.7 AST Cancelled 12 L ALT Cancelled 25 Alkaline Phosphatase Cancelled 54 Total Protein Cancelled 7.0 Albumin Cancelled 3.9 Urine Color (Yellow) Yellow Urine Clarity (Clear) Sl Cloudy Urine pH (5-8) 5.5 Ur Specific [place] (1.005-1.025) >= 1.030 H Urine Protein (Neg-Trace) mg/dL Negative Urine Ketones (Negative) mg/dL Negative Urine Blood (Negative) Negative Urine Nitrite (Negative) Negative Urine Bilirubin (Negative) Negative Urine Urobilinogen (Up to 0.2) mg/dL 0.2 Ur Leukocyte Esterase (Negative) Trace H Urine RBC (0-2) HPF Negative Urine WBC (0-5) HPF 0-2 Ur Epithelial Cells (Negative) HPF Many Urine Crystals (Negative) HPF Negative Urine Bacteria (Negative) HPF Few Urine Casts (Negative) LPF Negative Urine Mucus (Negative) Negative Ur Culture Indicated? No/Sq. Contamination Urine Glucose (Negative) mg/dL Negative Quality:SDOH Health Related Social Needs: No Data to Display PFSH All Active Problems (Updated 03/23/24 @ 13:09 by Lester Rincon MD) Central stenosis of spinal canal (Acute) Lumbar disc herniation (Acute) Chronic GERD (Acute) Injury of volar plate of interphalangeal joint of thumb (Acute) Tendinitis of long head of biceps brachii of left shoulder (Acute) Low back pain (Acute) Heart burn (Acute) Non-restorative sleep (Acute) Snoring (Acute) Obstructive sleep apnea (Chronic) COVID-19 (Acute) December 2021 Trigger finger (Acute) Bilateral 3rd fingers Seasonal allergic rhinitis (Chronic) History of stillbirth (Acute 12/28/16) Grief with PTSD like symptoms Chronic left-sided low back pain with left-sided sciatica (Chronic 12/28/16) Surgical intervention in 2006 Medical History Uterine fibroid Surgical History History of colonoscopy (~08/2023) [place] teeth extracted History of back surgery 2006, lumbar-discectomy Family History Mother Heart disease Hyperlipidemia Hypertension Sister No problems noted. Son No problems noted. Maternal Grandmother Diabetes Heart disease Hyperlipidemia Hypertension Stroke Paternal Grandmother No problems noted. 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 Pets and animals: No Sexually active: Yes Do you think of yourself as: straight/heterosexual Current gender identity: female What is your relationship status?: How often do you talk on the phone with friends or family?: once per week Do you belong to any clubs or organized social groups?: yes Panel score (0-1 are the most socially isolated patients): 2 What type of physical activity do you participate in: none Duration: 15-30 minutes/day Frequency: 1-2 times per week Seatbelt use: always Helmet use: Yes Drive intox or ride w/intox entry driver operator: No Working smoke detector in home: Yes Carbon monox detector in home: Yes Firearms in home: Yes Firearms unloaded and locked: Yes Do you feel safe at home: Yes Do you feel safe in your relationship?: Yes Victim of physical abuse: No Victim of emotional abuse: No Victim of sexual abuse: No PAWSS Have you Been Recently Intoxicated or Drunk Within the Last 30 days?: No Have you Ever Experienced Previous Episodes of Alcohol Withdrawal?: No Have you ever Experienced Withdrawal Seizures?: No Have you ever Experienced Delirium Tremens(DT)s?: No Have you ever undergone Alcohol Rehabilitation Treatment (i.e, inpt ot outpatient treatment programs)?: No Have you ever Experienced Blackouts?: No Have you ever Combined Alcohol with other Downers within the last 90 days?: No Have you ever Combined Alcohol with any other Substance of Abuse during the last 90 days?: No Positive Blood Alcohol level on Presentation? [PCS.BAL]: No Evidence of Increased Autonomic Activity (i.e. HR>120, tremor, sweating, agitation, nausea)?: No Result: 0
[2024-03-23 09:13] LABS: ALT 25 U/L (14-59); AST 12 U/L (15-37); Albumin 3.9 g/dL (3.4-5.0); Alkaline Phosphatase 54 U/L (46-116); Anion Gap 7.1 mmol/L (3-11); BUN 18 mg/dL (7-18); Bilirubin, Total 0.7 mg/dL (0.2-1.0); CO2 27.9 mmol/L (21.0-32.0); CREATININE 0.6 mg/dL (0.55-1.02); Calcium 8.5 mg/dL (8.5-10.1); Chloride 106 mmol/L (98-107); Estimated GFR 111.34 (mL/min/1.73m2); Glucose 97 mg/dL (74-106); Magnesium 1.9 mg/dL (1.8-2.4); Potassium 4.1 mmol/L (3.5-5.1); Sodium 141 mmol/L (136-145)
[2024-03-23] MEDS: Ketorolac 15 MG/ML VIAL IVP (10:53)
[2024-03-23 12:03] LABS: Bilirubin Negative (Negative); Blood Negative (Negative); Clarity Sl Cloudy (Clear); Glucose Negative (Negative); Ketones Negative (Negative); Leukocyte Esterase Trace (Negative); Nitrite Negative (Negative); Specific Gravity >= 1.030 (1.005-1.025); Urobilinogen 0.2 mg/dL (Up to 0.2); pH 5.5 (5-8)
[2024-03-23 12:09] LABS: Bacteria Few HPF (Negative); C & S Indicated? No/Sq. Contamination; Casts Negative LPF (Negative); Crystals Negative HPF (Negative); Epithelial Cells Many HPF (Negative); Mucus Negative (Negative); RBC Negative HPF (0-2); WBC 0-2 HPF (0-5)
== END 2024-03-23 13:34 | disposition home or self-care (01) ==
PROVIDERS: Emergency Provider Student in an Organized Health Care Education/Training Program; PCP Nurse Practitioner Family
DX: M51.26 Other intervertebral disc displacement, lumbar region (principal); M48.061 Spinal stenosis, lumbar region without neurogenic claudication; R32 Unspecified urinary incontinence
CPT/HCPCS: 36415; 80053; 96365; 96375; 99284; 72148; 81003; 81015; 83735; 85025; J0131; J1885

== ENCOUNTER 2024-08-31 14:00 | Outpatient (CLI) | payer BC, SELFPAY ==
--- NOTE | 2024-08-31 | DI.MRI_ITS ---
Exam(s) MR LUMBAR SPINE WO EXAM: MR LUMBAR SPINE WO CLINICAL HISTORY: LT LEG PAIN, M79.605, LT L5 RADICULOPATHY, HX HNP L4/5, PREOP. TECHNIQUE: Multiplanar multisequence MRI of the Lumbar spine was performed. COMPARISON: MR MR LUMBAR SPINE WO from 03/23/2024 FINDINGS: Conus medullaris is at normal level. There is no evidence of conus mass nor subjacent clumping of in trathecal nerve roots to suggest arachnoiditis. The distal thecal sac appears unremarkable.There is no evidence of Tarlov intrasacral cysts nor other significant findings within the sacral canal Bones:There are no fractures nor ominous osseous lesions in the lumbar vertebral bodies and visualize d sacrum. Modic type 1 sub endplate marrow edema changes are again noted at L5-S1 level. With respect to the individual levels... T12-L1: Unremarkable L1-2: Normal disc height and signal. No disc herniation nor central canal stenosis.No foraminal steno sis L2-3: Normal disc height. No disc herniation nor central canal stenosis.No foraminal stenosis.No face t arthropathy. L3-4: Normal disc height. No disc herniation or central canal stenosis.No foraminal stenosis.No face t arthropathy. L4-5: The previously described central/posterolateral left disc protrusion is again noted and is agai n noted occupy the left lateral recess as well as indenting the thecal sac, similar to previous. It also extends slightly inferiorly behind the left side of the L5 vertebral body. Amount of canal sten osis is similar to previous study. There does not appear to be significant foraminal stenosis on eit her side at this level. There is some mild degenerative changes in the facet joints again noted. L5-S1: This level exhibits chronic disc space narrowing. Again noted is posterior central subligamen tous annular bulging but no large disc herniation and central canal dimensions are lower normal at th is level. There is no significant facet arthropathy and no foraminal stenosis this level. Soft tissues: paraspinal soft tissues appear unremarkable. IMPRESSION: 1. Findings are quite similar to the prior MRI scan of 03/23/2024 with a left paracentral disc hernia tion at L4-5 causing left lateral recess stenosis with compression of the L5 nerve root as well as an terior thecal sac. Mild central canal stenosis. There is, however, no significant foraminal stenosi s at this level. 2. Chronic disc height loss at L5-S1 level with chronic degenerative disc disease findings at this le bryan again noted, unchanged. No new disc herniations at this level. DATA REPOSITORY:
== END 2024-08-31 14:20 ==
LOC: DI 14:00
PROVIDERS: PCP Nurse Practitioner Family; Visit Provider Neurological Surgery
DX: M48.062 Spinal stenosis, lumbar region with neurogenic claudication (principal)
CPT/HCPCS: 72148

== ENCOUNTER 2024-09-10 10:38 | Outpatient (CLI) | payer BC, SELFPAY ==
[2024-09-10 12:16] LABS: Abs Immature Grans 0.02 10^3/uL (0.0-0.06); Absolute Basophil Count 0.06 10^3/uL (0.0-0.2); Absolute Eosinophil Count 0.12 10^3/uL (0.0-0.7); Absolute Lymphocyte Count 1.78 10^3/uL (1.2-3.4); Absolute Monocyte Count 0.39 10^3/uL (0.1-0.8); Absolute Neutrophil Count 4.31 10^3/uL (1.2-6.7); Basophils % 0.9 %; Eosinophils % 1.8 %; HCT 39.7 % (36.0-46.0); HGB 13.6 g/dL (11.2-15.7); Immature Grans % 0.3 %; Lymphocytes % 26.6 %; MCH 30.8 pg (27.0-33.0); MCHC 34.3 % (32.0-36.0); MCV 90 fL (80-95); Monocytes % 5.8 %; Neutrophils % 64.6 %; Platelet Count 213 10^3/uL (130-400); RBC 4.42 10^6/uL (3.93-5.22); RDW 12.1 % (11.7-14.6); RDW-SD 39.6 fL; WBC 6.68 10^3/uL (4.4-10.8)
[2024-09-10 12:35] LABS: ALT 46 U/L (14-59); AST 26 U/L (15-37); Albumin 3.9 g/dL (3.4-5.0); Alkaline Phosphatase 63 U/L (46-116); Anion Gap 8.4 mmol/L (3-11); BUN 17 mg/dL (7-18); Bilirubin, Total 0.59 mg/dL (0.2-1.0); CO2 28.6 mmol/L (21.0-32.0); CREATININE 0.8 mg/dL (0.55-1.02); Calcium 9.2 mg/dL (8.5-10.1); Calculated LDL 100 mg/dL (<100); Chloride 106 mmol/L (98-107); Cholesterol 215 mg/dL (<200); Glucose 94 mg/dL (74-106); HDL Cholesterol 49 mg/dL (40-60); Potassium 3.8 mmol/L (3.5-5.1); Sodium 143 mmol/L (136-145); TSH (W/Ref FT4) 2.16 uIU/mL (0.36-3.74); Total Protein 7.2 g/dL (6.4-8.2); Triglyceride 330 mg/dL (<150)
[2024-09-10 12:50] LABS: Hemoglobin A1C 4.9 % (<5.7)
== END 2024-09-10 10:39 | disposition home or self-care (01) ==
LOC: LOS 10:38
PROVIDERS: PCP Nurse Practitioner Family; Visit Provider Nurse Practitioner Family
DX: Z13.220 Encounter for screening for lipoid disorders (principal); Z01.818 Encounter for other preprocedural examination; R53.83 Other fatigue; Z13.1 Encounter for screening for diabetes mellitus
CPT/HCPCS: 36415; 80053; 80061; 83036; 84443; 85025

== ENCOUNTER 2025-01-06 09:07 | Emergency (ER) | payer BC, SELFPAY ==
[2025-01-06 09:12] VITALS: BP 155/87; PULSE 89; RESP 20; TEMP 36.3; O2SAT 98
--- NOTE | 2025-01-06 09:12 | W.ED.GENAD ---
Discharge Plan Disposition Patient Disposition: Home Discharge Details Clinical Impression: Acute UTI Primary Care Provider: Prosper Sepulveda ED Provider: Roberto Mariscal Home Meds and New Rx's Prescriptions: New cephalexin 250 mg capsule 250 mg PO QID 5 Days Qty: 20 0RF Continued vitamin B complex [B Complex-Vitamin B12] Tablet 1 tab PO DAILY cholecalciferol (vitamin D3) 25 mcg (1,000 unit) capsule 25 mcg PO DAILY Women's Daily Formula 27-0.4 mg tablet 1 tab PO DAILY Galzin 50 mg (zinc) capsule 50 mg PO DAILY ascorbic acid (vitamin C) 500 mg capsule 500 mg PO DAILY Adult 50 Plus Probiotic 4 billion cell capsule 4,000 cell PO DAILY clindamycin phosphate 1 % solution 1 applic topical BID Patient Comments: APPLY TO FACE ON A ONE TO TWO TIMES DAILY BASIS hydrocortisone 2.5 % cream 1 applic topical BID Patient Comments: APPLY TOPICALLY TO FACE TWO TIMES A DAY DIRECTED tretinoin 0.05 % cream 1 applic topical BID Patient Comments: APPLY TOPICALLY TO FACE TWO TIMES A DAY DIRECTED omeprazole 20 mg capsule,delayed release(DR/EC) 20 mg PO BID Qty: 90 3RF hydroquinone 4 % cream 1 applic TOPICAL BID Patient Comments: APPLY TO FACE TWO TIMES A DAY sertraline [Zoloft] 50 mg tablet 50 mg PO DAILY Patient Comments: TAKE ONE TABLET BY MOUTH EVERY DAY Discharge Instructions Instructions: Urinary Tract Infection, Adult ED Additional Instructions: You are seen in the emergency department for your burning while urinating. You are urinalysis was concerning for urinary tract infection for which you are receiving antibiotics which you should take as directed. As we discussed if you develop fevers or cannot take your antibiotic please return to the emergency department. Otherwise please follow-up with your primary care provider as needed next week. Your rapid viral swab was negative for COVID and influenza. For your pain please take medications as follows: 1. Take acetaminophen (Tylenol), 1,000 mg (two 500 mg tabs) every 6 hours [2. Take ibuprofen (Advil), 400 mg every 6 hours.] Discharge Data Discharge Date/Time-TO BE ENTERED AT DEPARTURE: 01/06/25 10:30 HPI General Date/Time Provider Initiated Documentation: 01/06/25 09:12. HPI Narrative: MDM This is an overall very well-appearing afebrile and not tachycardic 49-year-old female with history of dysuria and frequency concerning for UTI and as per respiratory symptoms concerning for viral etiology for which patient will receive [id number] COVID and influenza swab. Clear lungs no hypoxia and no fevers so my suspicion pneumonia is low so I did not feel that the patient required a chest x-ray. Uvula midline making my suspicion low for peritonsillar abscess. Nontoxic so doubt bacterial tracheitis. Handling secretions so doubt epiglottitis. No pain or proportion to suggest necrotizing soft tissue infection. No history of nephrolithiasis and no flank pain to suggest ureterolithiasis. Will treat for urinary tract infection based on symptoms regardless of urinalysis results. No abdominal pain to suggest appendicitis. No diarrhea to suggest diverticulitis. No recent generator exposure to suggest carbon monoxide toxicity. Patient has had lumbar spinal surgery in the past several months. Given no fevers no erythema at surgical site. Good range of motion in neck so not suspicious for retropharyngeal abscess. No chiropractic manipulation to suggest increased risk for cervical arterial dissection. No vomiting so my suspicion is low for subdural empyema. Headaches responsive to Mucinex I am not suspicious for meningitis so I do not feel the patient required a lumbar puncture. In the absence of fevers and based on the patient's age my suspicion is low for strep pharyngitis. Furthermore patient has a low Centor score of 0 so we will defer strep testing and antibiotics for strep. Urinalysis showing leuk esterase and hematuria. Based on symptoms we will treat with cephalexin for 5 days. Patient's rapid swab was negative for COVID and influenza. 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 HPI This is a 49-year-old female arrived to the emergency department via private vehicle with 2 primary complaints. Patient notes that for the past 5 days she has had cold symptoms of congestion cough sinus pressure sore throat. She has had headache that began 5 days ago and has been intermittently responsive to Mucinex. She endorses frontal headache and some sinus pressure. Her has recently had the flu. She has had a sore throat primarily on the right side for the past several days. She has not recently been around generator. She did not hit her head. She denies any recent chiropractic manipulation. Exam General: Well-appearing in no acute distress speaking in complete sentences. Head: Normocephalic, atraumatic. Eye: Extraocular eye movements intact. No conjunctival injection. No scleral icterus. Ear, nose, mouth, throat: Grossly normal inspection. Normal voice, handling secretions normally. No significant tonsillar exudates. No obviously enlarged cervical nodes. Uvula midline. No posterior oropharynx erythema. Neck: Trachea midline. Good range of motion in neck. Cardiovascular: Well-perfused distal extremities. Respiratory: Nonlabored respiration. Clear lungs bilaterally. Back: Well-healed midline lumbar spinal incision. Gastrointestinal: Nondistended abdomen. Musculoskeletal: No edema. Moving all 4 extremities spontaneously. Skin: Normal for age and race, grossly normal temperature and turgor. No acute rash. Neurologic: Alert and appropriate, no apparent acute deficits. Psychiatric: Mood and manner are appropriate. Grooming and personal hygiene are appropriate. Related Data Home Medications ?Medication ?Instructions ?Recorded ?Confirmed hydroquinone 4 % topical cream 1 applic topical BID 12/15/21 01/06/25 sertraline 50 mg tablet (Zoloft) 50 mg PO DAILY 12/15/21 01/06/25 ascorbic acid (vitamin C) 500 mg 500 mg PO DAILY 10/14/22 01/06/25 capsule cholecalciferol (vitamin D3) 25 25 mcg PO DAILY 10/14/22 01/06/25 mcg (1,000 unit) capsule lactobacillus combination no.9 4 4,000 cell PO DAILY 10/14/22 01/06/25 billion cell capsule (Adult 50 Plus Probiotic) [id number]-minerals 27 1 tab PO DAILY 10/14/22 01/06/25 mg-0.4 mg tablet (Women's Daily Formula) vitamin B complex (B 1 tab PO DAILY 10/14/22 01/06/25 Complex-Vitamin B12 tablet) zinc acetate 50 mg (zinc) capsule 50 mg PO DAILY 10/14/22 01/06/25 (Galzin) clindamycin phosphate 1 % topical 1 applic topical BID 09/19/23 01/06/25 solution omeprazole 20 mg capsule,delayed 20 mg PO BID #90 caps 05/16/24 01/06/25 release hydrocortisone 2.5 % topical cream 1 applic topical BID 09/10/24 01/06/25 tretinoin 0.05 % topical cream 1 applic topical BID 09/10/24 01/06/25 cephalexin 250 mg capsule 250 mg PO QID 5 days #20 caps 01/06/25 Previous Rx's ?Medication ?Instructions ?Recorded omeprazole 20 mg capsule,delayed 20 mg PO BID #90 caps 05/16/24 release cephalexin 250 mg capsule 250 mg PO QID 5 days #20 caps 01/06/25 Allergies Allergy/AdvReac Type Severity Reaction Status Date / Time lactose Allergy Intermediate diarrhea/bl Verified 01/06/25 09:13 oating tramadol Allergy Intermediate HIVES Verified 01/06/25 09:13 codeine Allergy Mild HIVES; GI Verified 01/06/25 09:13 UPSET General GENET: 4 Medical Decision Making Quality:SDOH Health Related Social Needs: No Data to Display PFSH All Active Problems (Updated 01/06/25 @ 09:55 by Roberto Mariscal MD) Acute UTI (Acute) Chronic GERD (Acute) Injury of volar plate of interphalangeal joint of thumb (Acute) Tendinitis of long head of biceps brachii of left shoulder (Acute) Low back pain (Acute) Heart burn (Acute) Non-restorative sleep (Acute) Snoring (Acute) Obstructive sleep apnea (Chronic) COVID-19 (Acute) December 2021 Trigger finger (Acute) Bilateral 3rd fingers Seasonal allergic rhinitis (Chronic) History of stillbirth (Acute 12/28/16) Grief with PTSD like 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 Son No problems noted. Maternal Grandmother Diabetes Heart disease Hyperlipidemia Hypertension Stroke Paternal Grandmother No problems noted. 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 Pets and animals: No Sexually active: Yes Do you think of yourself as: straight/heterosexual Current gender identity: female What is your relationship status?: How often do you talk on the phone with friends or family?: once per week Do you belong to any clubs or organized social groups?: yes Panel score (0-1 are the most socially isolated patients): 2 What type of physical activity do you participate in: none Duration: 15-30 minutes/day Frequency: 1-2 times per week Seatbelt use: always Helmet use: Yes Drive intox or ride w/intox tier truck driver: No Working smoke detector in home: Yes Carbon monox detector in home: Yes Firearms in home: Yes Firearms unloaded and locked: Yes Do you feel safe at home: Yes Do you feel safe in your relationship?: Yes Victim of physical abuse: No Victim of emotional abuse: No Victim of sexual abuse: No
[2025-01-06 09:16] VITALS: BP 155/87; PULSE 89; RESP 20; TEMP 36.3; O2SAT 98
[2025-01-06 09:26] LABS: Bilirubin Negative (Negative); Blood Small (Negative); Clarity Cloudy (Clear); Glucose Negative (Negative); Ketones Negative (Negative); Leukocyte Esterase Small (Negative); Nitrite Negative (Negative); Urobilinogen 0.2 mg/dL (Up to 0.2); pH 5.5 (5-8)
[2025-01-06 09:40] LABS: Bacteria Many HPF (Negative); Crystals Negative HPF (Negative); Epithelial Cells Many HPF (Negative); Mucus Negative (Negative); Other Cells Moderate Renal (Negative); RBC >50 HPF (0-2); WBC >50 HPF (0-5)
[2025-01-06 09:41] LABS: C & S Indicated? No/Sq. Contamination; Casts 3-5 Coarse Granular LPF (Negative)
[2025-01-06] MEDS: Cephalexin 250 MG CAP PO (10:12)
[2025-01-06 10:28] VITALS: BP 155/87; PULSE 89; RESP 20; TEMP 36.3; O2SAT 98
== END 2025-01-06 10:30 | disposition home or self-care (01) ==
PROVIDERS: Emergency Provider Emergency Medicine; PCP Nurse Practitioner Family
DX: N39.0 Urinary tract infection, site not specified (principal); R09.81 Nasal congestion; R05.9 Cough, unspecified
CPT/HCPCS: 81025; 87426; 99283; 81003; 81015

== ENCOUNTER 2025-10-09 01:39 | Outpatient (CLI) | payer BC, SELFPAY ==
[2025-10-09 08:05] LABS: Hemoglobin A1C 4.8 % (<5.7)
[2025-10-09 08:18] LABS: Cholesterol 181 mg/dL (<200); HDL Cholesterol 44 mg/dL (>40)
[2025-10-09 08:21] LABS: TSH (W/Ref FT4) 2.03 uIU/mL (0.55-4.78)
== END 2025-10-09 01:40 | disposition home or self-care (01) ==
LOC: LBO 01:39
PROVIDERS: PCP Nurse Practitioner Family; Visit Provider Nurse Practitioner Family
DX: E03.9 Hypothyroidism, unspecified (principal); Z13.1 Encounter for screening for diabetes mellitus; Z13.220 Encounter for screening for lipoid disorders
CPT/HCPCS: 36415; 80061; 83036; 84443